=== PATIENT | male | born 1960 | race Caucasian/White ===

== ENCOUNTER 2020-06-27 11:31 | Inpatient (IN) | payer BC, MEDICARE, OTHER ==
[~2020-06-27] VITALS: Ht 170.2 cm; Wt 83.9 kg
--- NOTE | 2020-06-27 11:54 | NUR ---
Shanna hayden in ED - 06/27/20 at 1326 by ARMAAN RECEIVED REPORT FROM [facility]AD [facility] AND ASSUMED CARE OF PT
[2020-06-27] MEDS ORDERED: TRIMETHOPRIM (12:10)
[2020-06-27] MEDS ORDERED: SULFAMETHOXAZOLE (12:10)
[2020-06-27] MEDS ORDERED: HYDROmorphone 1 MG/ML, 1ML INJ ONE ×2 (12:18→13:03)
[2020-06-27] MEDS: HYDROmorphone 1 MG/ML, 1ML INJ IVPush PRN ×2 (12:26→13:14)
--- NOTE | 2020-06-27 12:31 | NUR ---
GOOD DISTAL CMS
--- NOTE | 2020-06-27 12:31 | NUR ---
MEDICATED FOR LEFT HIP PAIN. EXTERNAL ROTATION OF LEFT LEG NOTED.
--- NOTE | 2020-06-27 13:26 | NUR ---
PT UOB AND AMBULATED SHORT DISTANCE TO BATHROOM. IV BOLUS STARTED AND GIVEN ZOFRAN FOR NAUSEA.
--- NOTE | 2020-06-27 13:49 | NUR ---
MEDICATED FOR CONTINUED LEFT HIP PAIN. COVID LAB SWAB OBTAINED. WRIGHT PLACED ORDERED AND CHARTED.
--- NOTE | 2020-06-27 14:07 | NUR ---
REPORT TO [facility]. PT TO BE TRANSFERRED TO FLOOR.
[2020-06-27 14:29] VITALS: BP 151/88
[2020-06-27] MEDS ORDERED: OMEP20TA62 PO (14:43)
[2020-06-27] MEDS ORDERED: LORA2TAB99 PO (14:43)
[2020-06-27] MEDS ORDERED: non (14:43)
[2020-06-27] MEDS ORDERED: HYDR-3241 PO (14:43)
[2020-06-27 15:35] LABS: BASOPHILS % (AUTO) 0 % (0-1); EOSINOPHILS % (AUTO) 1 % (1-7); LYMPHOCYTES % (AUTO) 20 % (22-44); MEAN CORPUSCULAR HEMOGLOBIN 34.9 pg (27.5-34.5); MEAN PLATELET VOLUME 8.3 fL (7.4-10.4); MONOCYTES % (AUTO) 15 % (2-9); NEUTROPHILS % (AUTO) 64 % (42-75); PLATELET COUNT 139 x10^3/uL (130-400); RED BLOOD COUNT 3.78 x10^6/uL (4.38-5.82); RED CELL DISTRIBUTION WIDTH 13.2 % (9.4-14.8)
[2020-06-27 15:36] LABS: MD NO
[2020-06-27 15:38] LABS: ALANINE AMINOTRANSFERASE 25 U/L (12-78); ALBUMIN 3.2 g/dL (3.4-5.0); ANION GAP 6 mmol/L (5-15); CALCIUM 8.1 mg/dL (8.5-10.1); CHLORIDE 110 mmol/L (98-107); CREATININE 0.43 mg/dL (0.7-1.3)
[2020-06-27 15:40] LABS: ALKALINE PHOSPHATASE 85 U/L (45-117); BILIRUBIN,TOTAL 1.3 mg/dL (0.2-1.0); TOTAL PROTEIN 6.4 g/dL (6.4-8.2)
[2020-06-27] MEDS: SODIUM CHLORIDE 0.9% 1,000 ML IV SCH (16:00)
[2020-06-27] MEDS ORDERED: BISACODYL 10 MG SUPP PR PRN (16:00)
[2020-06-27] MEDS ORDERED: LORazepam 2 MG/ML, 1ML IV PRN ×6 (16:00)
[2020-06-27] MEDS ORDERED: POLYETHYLENE GLYCOL 17 GM PACKET PO PRN (16:00)
[2020-06-27] MEDS ORDERED: LORazepam 1MG TABLET PO PRN ×4 (16:00)
[2020-06-27] MEDS ORDERED: LORazepam 0.5MG TABLET PO PRN (16:00)
[2020-06-27] MEDS ORDERED: ONDANSETRON 2MG/ML, 2ML IVPush PRN (16:00)
[2020-06-27] MEDS ORDERED: ACETAMINOPHEN 325 MG TABLET PO PRN (16:00)
[2020-06-27] MEDS: HYDROcodone/APAP 5/325 TABLET PO PRN ×2 (16:22→20:14)
[2020-06-27] MEDS: morphine SULFATE 10 MG/ML, 1ML IVPush PRN ×2 (19:16→22:23)
[2020-06-27 19:56] VITALS: BP 113/73
[2020-06-28] MEDS: HYDROcodone/APAP 5/325 TABLET PO PRN ×2 (00:04→13:07)
[2020-06-28 00:53] VITALS: BP 151/76
[2020-06-28] MEDS: morphine SULFATE 10 MG/ML, 1ML IVPush PRN ×2 (01:31→04:47)
[2020-06-28] MEDS: SODIUM CHLORIDE 0.9% 1,000 ML IV SCH (04:46)
[2020-06-28 06:11] LABS: BASOPHILS % (AUTO) 0 % (0-1); EOSINOPHILS % (AUTO) 2 % (1-7); LYMPHOCYTES % (AUTO) 14 % (22-44); MEAN CORPUSCULAR HGB CONC 34.9 g/dL (33.2-36.2); MEAN PLATELET VOLUME 8.3 fL (7.4-10.4); MONOCYTES % (AUTO) 15 % (2-9); NEUTROPHILS % (AUTO) 69 % (42-75); PLATELET COUNT 105 x10^3/uL (130-400); RED BLOOD COUNT 3.57 x10^6/uL (4.38-5.82)
[2020-06-28 06:12] LABS: MD NO
[2020-06-28 06:24] LABS: ANION GAP 6 mmol/L (5-15); CALCIUM 7.9 mg/dL (8.5-10.1); CHLORIDE 104 mmol/L (98-107)
[2020-06-28 06:36] LABS: ALANINE AMINOTRANSFERASE 23 U/L (12-78); ALKALINE PHOSPHATASE 83 U/L (45-117); CREATININE 0.51 mg/dL (0.7-1.3)
[2020-06-28] MEDS ORDERED: MIDAZOLAM 1 MG/ML, 2ML ONE (07:22)
[2020-06-28] MEDS ORDERED: PHENYLEPHRINE 10 MG/ML ONE (07:23)
[2020-06-28] MEDS ORDERED: FENTANYL PF 250 MCG/5ML ONE (07:25)
[2020-06-28] MEDS ORDERED: LIDOCAINE-MPF 2% ,5ML ONE (07:56)
[2020-06-28] MEDS ORDERED: CEFAZOLIN 1,000 MG ONE (08:03)
[2020-06-28] MEDS ORDERED: ONDANSETRON 2MG/ML, 2ML ONE (08:03)
[2020-06-28] MEDS ORDERED: SUCCINYLCHOLINE 20 MG/ML, 10ML ONE (08:03)
[2020-06-28] MEDS ORDERED: PROPOFOL 10 MG/ML, 20ML ONE (08:03)
[2020-06-28] MEDS ORDERED: DEXAMETHASONE 4 MG/ML, 1ML ONE (08:03)
[2020-06-28] MEDS ORDERED: FENTANYL PF 100 MCG/2ML ONE (08:35)
[2020-06-28] MEDS ORDERED: ACETAMINOPHEN 650 MG/20.3 ML UDC ONE (08:36)
[2020-06-28] MEDS ORDERED: KETOROLAC 30 MG/1 ML ONE (08:36)
[2020-06-28] MEDS ORDERED: OXYcodone 5 MG/5 ML ORAL.SOL UDC ONE (08:36)
[2020-06-28] MEDS ORDERED: SODIUM PHOSPHATE 30 MMOL in SODIUM CHLORIDE 0.9% 500 ML IV ONE (09:00)
[2020-06-28] MEDS ORDERED: ACETAMINOPHEN 325 MG TABLET PO PRN (09:00)
[2020-06-28] MEDS ORDERED: LORazepam 2 MG/ML, 1ML IVPush PRN (09:00)
[2020-06-28] MEDS ORDERED: LABETALOL 5MG/ML, 20ML IV PRN (09:00)
[2020-06-28] MEDS ORDERED: METHOCARBAMOL 1,000 MG in DEXTROSE 5% 100 ML IV PRN (09:00)
[2020-06-28] MEDS ORDERED: OXYcodone 5 MG/5 ML ORAL.SOL UDC PO PRN (09:00)
[2020-06-28] MEDS ORDERED: MEPERIDINE/PF 25MG/0.5ML IVPush PRN (09:00)
[2020-06-28] MEDS ORDERED: HYDROmorphone 1 MG/ML, 1ML INJ IVPush PRN (09:00)
[2020-06-28] MEDS ORDERED: PROMETHAZINE 25 MG/ML, 1ML IVPush PRN (09:00)
[2020-06-28] MEDS ORDERED: FENTANYL PF 100 MCG/2ML IV PRN (09:00)
[2020-06-28] MEDS ORDERED: KETOROLAC 30 MG/1 ML IVPush SCH (09:30)
[2020-06-28] MEDS: THIAMINE 100MG TABLET PO SCH (10:02)
[2020-06-28] MEDS: FOLIC ACID 1 MG TABLET PO SCH (10:02)
[2020-06-28 10:04] VITALS: BP 97/68
[2020-06-28 13:00] VITALS: BP 101/70
[2020-06-28] MEDS ORDERED: OXYcodone IR 5MG TABLET PO PRN (13:00)
[2020-06-28] MEDS: DOCUSATE 100 MG CAPSULE PO PRN (14:22)
[2020-06-28] MEDS: KETOROLAC 30 MG/1 ML IV SCH (16:18)
[2020-06-28] MEDS: CEFAZOLIN PMX 2GM/50ML 50 ML IVPB SCH (16:19)
[2020-06-28] MEDS ORDERED: CEFAZOLIN 2,000 MG in SODIUM CHLORIDE 0.9% 50 ML IV SCH (16:30)
[2020-06-28 18:27] VITALS: BP 102/68
[2020-06-28] MEDS: LORazepam 1MG TABLET PO PRN (23:24)
[2020-06-29] MEDS: KETOROLAC 30 MG/1 ML IV SCH ×2 (00:06→09:41)
[2020-06-29] MEDS: CEFAZOLIN PMX 2GM/50ML 50 ML IVPB SCH ×2 (00:06→09:41)
[2020-06-29] MEDS: HYDROcodone/APAP 5/325 TABLET PO PRN ×2 (00:07→05:37)
[2020-06-29 00:26] VITALS: BP 120/70
[2020-06-29 03:58] VITALS: BP 109/69
[2020-06-29] MEDS: DOCUSATE 100 MG CAPSULE PO PRN ×2 (05:36→19:56)
[2020-06-29] MEDS: ENOXAPARIN 40 MG/0.4 ML SQ SCH (05:36)
[2020-06-29 06:48] LABS: BASOPHILS % (AUTO) 0 % (0-1); EOSINOPHILS % (AUTO) 0 % (1-7); LYMPHOCYTES % (AUTO) 5 % (22-44); MEAN CORPUSCULAR HEMOGLOBIN 34.4 pg (27.5-34.5); MEAN CORPUSCULAR HGB CONC 35.2 g/dL (33.2-36.2); MEAN PLATELET VOLUME 8.5 fL (7.4-10.4); MONOCYTES % (AUTO) 6 % (2-9); NEUTROPHILS % (AUTO) 89 % (42-75); PLATELET COUNT 116 x10^3/uL (130-400); RED BLOOD COUNT 3.36 x10^6/uL (4.38-5.82); RED CELL DISTRIBUTION WIDTH 13.3 % (9.4-14.8)
[2020-06-29 06:51] LABS: MD NO
[2020-06-29 07:02] VITALS: BP 121/79
[2020-06-29 07:03] LABS: ANION GAP 5 mmol/L (5-15); CALCIUM 8.5 mg/dL (8.5-10.1); CHLORIDE 105 mmol/L (98-107); CREATININE 0.57 mg/dL (0.7-1.3)
[2020-06-29] MEDS ORDERED: ACETAMINOPHEN 325 MG TABLET PO PRN (08:00)
[2020-06-29] MEDS: FOLIC ACID 1 MG TABLET PO SCH (09:41)
[2020-06-29] MEDS: THIAMINE 100MG TABLET PO SCH (09:41)
[2020-06-29] MEDS: CALCIUM/VITAMIN D3 250-125 TABLET PO SCH ×2 (09:42→20:08)
[2020-06-29] MEDS ORDERED: morphine SULFATE 10 MG/ML, 1ML IVPush PRN (10:00)
[2020-06-29] MEDS: LORazepam 1MG TABLET PO PRN ×2 (10:27→21:34)
[2020-06-29] MEDS ORDERED: CALC1TAB68 PO (10:35)
[2020-06-29] MEDS ORDERED: THIA100T67 PO (10:35)
[2020-06-29] MEDS ORDERED: CALC3.7S5 NAS (10:35)
[2020-06-29] MEDS: CALCITONIN NASAL 200 UNITS/0.09ML, 3.7ML NAS SCH (11:25)
[2020-06-29 13:35] VITALS: BP 137/90
[2020-06-29] MEDS: OXYcodone IR 5MG TABLET PO PRN ×2 (15:54→19:53)
[2020-06-29 19:04] VITALS: BP 129/66
[2020-06-30] MEDS: OXYcodone IR 5MG TABLET PO PRN ×3 (01:24→11:53)
[2020-06-30 01:30] VITALS: BP 140/51
[2020-06-30] MEDS: ENOXAPARIN 40 MG/0.4 ML SQ SCH (06:58)
[2020-06-30 07:00] VITALS: BP 134/79
[2020-06-30] MEDS: CALCIUM/VITAMIN D3 250-125 TABLET PO SCH (09:51)
[2020-06-30] MEDS: CALCITONIN NASAL 200 UNITS/0.09ML, 3.7ML NAS SCH (09:51)
[2020-06-30] MEDS: THIAMINE 100MG TABLET PO SCH (09:51)
[2020-06-30] MEDS: LORazepam 1MG TABLET PO PRN (09:51)
[2020-06-30] MEDS: FOLIC ACID 1 MG TABLET PO SCH (09:51)
[2020-06-30] MEDS ORDERED: ASPI81TA45 PO (10:41)
[2020-06-30 13:09] VITALS: BP 159/94
[2020-06-30 13:42] VITALS: BP 159/82
== END 2020-06-30 14:05 | disposition home or self-care (01) | DRG 522 ==
LOC: ED 11:54 → EDIP 13:19 → 4NE 14:26 → DCLOUNGE 06-30 13:56
PROVIDERS: ADMIT Hospitalist; ATTEND Internal Medicine
PROC: 0SRS0JZ Replacement of Left Hip Joint, Femoral Surface with Synthetic Substitute, Open Approach (ICD-10-PCS; principal; 2020-06-28 07:30)
DX: S72.002A Fracture of unspecified part of neck of left femur, initial encounter for closed fracture (principal); E87.6 Hypokalemia; F10.21 Alcohol dependence, in remission; F17.200 Nicotine dependence, unspecified, uncomplicated; G89.4 Chronic pain syndrome; I10 Essential (primary) hypertension; K02.9 Dental caries, unspecified; W01.0XXA Fall on same level from slipping, tripping and stumbling without subsequent striking against object, initial encounter; Y92.009 Unspecified place in unspecified non-institutional (private) residence as the place of occurrence of the external cause; Y93.01 Activity, walking, marching and hiking; Z85.818 Personal history of malignant neoplasm of other sites of lip, oral cavity, and pharynx; Z98.1 Arthrodesis status
CPT/HCPCS: 36415; 96374; 96376; 99285; J3490; 71045; 80048; 80053; 82607; 83735; 84100; 84439; 84443; 85025; 87635; 93005; C1713; G0378; J0690; J1100; J1170; J1650; J1885; J2250; J2405; J2704; J3010; C1762; C1776; J0330; J2270; J2370; J2800; J7030; J7040